=== PATIENT | female | born 1995 | race Caucasian/White ===

== ENCOUNTER 2017-03-04 22:21 | Emergency (ER) | payer BC ==
[2017-03-04 22:38] VITALS: BP 114/81; PULSE 82; RESP 16; TEMP 99; O2SAT 99
[2017-03-04 22:57] LABS: COLOR YELLOW; LEUKOCYTE ESTERASE,URINE 1+ (NEGATIVE); NITRITE,URINE NEGATIVE (NEGATIVE)
[2017-03-04 23:06] LABS: MUCUS 1+ /lpf (NONE-1+); RBC,URINE 50-182 /hpf (0-3); WBC,URINE 50-182 /hpf (0-3)
[2017-03-04] MEDS ORDERED: CEPHALEXIN 500MG PREPACK#4 BTL TAKEHOME ONE (23:15)
--- NOTE | 2017-03-04 23:16 | EDPHY ---
H & P Stated Complaint: bloody , painfull urination - Personal History LMP (Females 10-55): 8-14 Days Ago Current Tetanus Diphtheria and Acellular Pertussis (TDAP): Yes - Medical/Surgical History Hx Asthma: No Hx Chronic Respiratory Disease: No Hx Diabetes: No Hx Cardiac Disease: No Hx Renal Disease: No Hx Cirrhosis: No Hx Alcoholism: No Hx HIV/AIDS: No Hx Splenectomy or Spleen Trauma: No Other PMH: denies - Social History Smoking Status: Never smoked Time Seen by Provider: 03/04/17 22:52 HPI/ROS: Chief complaint: Pain with urination History of present illness: This is a 21-year-old female who presents to the emergency department for pain with urination. Patient reports the onset of symptoms over the last day. In addition to pain she has had urinary frequency. She has now noticed some blood in the urine. She also reports some suprapubic discomfort. She denies precipitating factors. Denies alleviating factors. Denies other associated signs or symptoms including no fevers, no nausea or vomiting, no abdominal pain, no back or flank pain, no bowel changes, no abnormal vaginal discharge or discomfort. (Darren Gasca) - Physical Exam Exam: General Appearance: Alert and no distress. Eyes: Pupils equal and round no injection. Respiratory: Chest is non tender, lungs are clear to auscultation. Cardiac: regular rate and rhythm Gastrointestinal: Abdomen is soft and non tender, no masses, bowel sounds normal. Genitourinary: No CVA tenderness Musculoskeletal: Neck is supple and non tender. Extremities have full range of motion and are non tender. Skin: No rashes or lesions. (Darren Gasca) Constitutional: Initial Vital Signs Temperature (C) 37.2 C 03/04/17 22:35 Heart Rate 82 03/04/17 22:35 Respiratory Rate 16 03/04/17 22:35 Blood Pressure 114/81 H 03/04/17 22:35 O2 Sat (%) 99 03/04/17 22:35 O2 Delivery Mode Room Air Allergies/Adverse Reactions: No Known Allergies Allergy (Unverified 03/04/17 22:35) Home Medications: Medication Instructions Recorded Cephalexin [Keflex] 500 mg PO TID 6 Days cap 03/04/17 Phenazopyridine HCl [Pyridium] 100 mg PO TID #5 tab 03/04/17 Medical Decision Making ED Course/Re-evaluation: Patient seen under the supervision of my secondary supervising physician Dr. Ama Sousa. Patient presents to the emergency department for painful urination with urinary frequency, hematuria and suprapubic pain. I believe history, physical exam and laboratory studies consistent with a urinary tract infection. Patient is nontoxic and I believe appropriate for outpatient management. She is started on antibiotics. Home care is discussed. Return precautions are given. Patient voiced understanding and agreement with plan. ( Darren Gasca) Differential Diagnosis: Included but not limited to cystitis, pyelonephritis, nephrolithiasis (Darren Gasca) Other Provider: PHYSICIAN DOCUMENTATION: The patient was evaluated and managed by the Physician Tooling Inspector. My co- signature indicates that I have reviewed this chart and I agree with the findings and plan of care as documented. I am the secondary supervising physician. (Chayito Sousa) - Data Points Laboratory Results: 03/04/17 03/04/17 22:40 22:40 Urine Color YELLOW Urine Appearance MODERATELY TURBID Urine pH 6.0 (5.0-7.5) Ur Specific [place] 1.021 (1.002-1.030) Urine Protein 2+ H (NEGATIVE) Urine Ketones NEGATIVE (NEGATIVE) Urine Blood 3+ H (NEGATIVE) Urine Nitrate NEGATIVE (NEGATIVE) Urine Bilirubin NEGATIVE (NEGATIVE) Urine Urobilinogen NEGATIVE EU EU (0.2-1.0) Ur Leukocyte Esterase 1+ H (NEGATIVE) Urine RBC 50-182 /hpf H /hpf (0-3) Urine WBC 50-182 /hpf H /hpf (0-3) Ur Epithelial Cells 1+ /lpf /lpf (NONE-1+) Urine Mucus 1+ /lpf /lpf (NONE-1+) Urine Glucose NEGATIVE (NEGATIVE) Urine Test NEGATIVE Medications Given: Discontinued Medications Cephalexin (Keflex 500 Mg Prepack#4) 1 btl TAKEHOME EDNOW ONE PRN Reason: Protocol Stop: 03/04/17 23:16 Last Admin: 03/04/17 23:22 Dose: 1 btl Phenazopyridine HCl (Pyridium) 200 mg PO EDNOW ONE Stop: 03/04/17 23:24 Last Admin: 03/04/17 23:28 Dose: 200 mg Departure - Departure Disposition: Home, Routine, Self-Care Clinical Impression: Urinary tract infection Qualifiers: Urinary tract infection type: site unspecified Hematuria presence: with hematuria Qualified Code(s): N39.0 - Urinary tract infection, site not specified Condition: Good Instructions: Cephalexin (By mouth), Urinary Tract Infection in Women (ED) Additional Instructions: Follow-up with a primary care doctor for continued evaluation and care Take antibiotics as prescribed until finished even feeling better If symptoms worsen or new symptoms develop return to the emergency room for recheck Referrals: [facility] [Other] - As per Instructions Prescriptions: Cephalexin [Keflex] 500 mg PO TID 6 Days cap Phenazopyridine HCl [Pyridium] 100 mg PO TID #5 tab
[2017-03-04] MEDS ORDERED: PHENAZOPYRIDINE HCL 200 MG TAB PO ONE (23:23)
== END 2017-03-04 23:20 | disposition home or self-care (01) ==
DX: N39.0 Urinary tract infection, site not specified (principal)